=== PATIENT | male | born 1955 | race Caucasian/White ===

== ENCOUNTER 2016-10-11 07:46 | Inpatient (IN) | payer MEDICARE, OTHER ==
[~2016-10-11] VITALS: Ht 165.1 cm; Wt 63.5 kg
[~2016-10-11 07:46] MED LIST: BISOPROLOL; CARB-93; CLONAZEPAM; ENAL5TAB; LAMICTAL; TRAZ-147 PO
[2016-10-11] MEDS ORDERED: MORPHINE SULFATE INJ 4 MG/ML DISP.SYRIN ONE ×2 (08:19→09:38)
[2016-10-11] MEDS ORDERED: MORPHINE SULFATE INJ 2 MG/ML DISP.SYRIN IV ONE ×2 (08:30→10:00)
[2016-10-11 08:37] LABS: BASOPHILS % (AUTO) 0.7 % (0.0-2.0); DIFF TOTAL % 100 %; EOSINOPHILS % (AUTO) 0.7 % (0.0-6.0); HEMATOCRIT 39 % (39-51); HEMOGLOBIN 13.4 g/dL (13.5-17.5); LYMPHOCYTES % (AUTO) 15.9 % (20.0-44.0); MEAN CORPUSCULAR HEMOGLOBIN 32 PG (26.0-33.0); MEAN CORPUSCULAR HGB CONC 34 g/dl (31.0-36.0); MEAN CORPUSCULAR VOLUME 95 fL (80-96); MONOCYTES # (AUTO) 0.7 /CMM (0.1-1.30); MONOCYTES % (AUTO) 11.4 % (2.0-12.0); NEUTROPHILS # (AUTO) 4.7 /CMM (1.8-8.9); NEUTROPHILS % (AUTO) 71.3 % (43.0-81.0); PLATELET COUNT (AUTO) 249 /CMM (150-450); RED BLOOD CELL COUNT(AUTO) 4.15 MIL/uL (4.5-6.0); WHITE BLOOD COUNT (AUTO) 6.5 K/uL (4.3-11.0)
[2016-10-11 08:45] LABS: CALCIUM, SERUM 8.7 mg/dL (8.5-10.1); CREATININE 1.2 mg/dL (0.6-1.3); POTASSIUM 4.1 mmol/L (3.5-5.1)
[2016-10-11 08:57] LABS: INR 1.02 (0.87-1.13)
[2016-10-11] MEDS ORDERED: CARB-96 PO (09:47)
[2016-10-11] MEDS ORDERED: BISO1TAB4 PO (09:47)
[2016-10-11] MEDS ORDERED: LAMO200T39 PO (09:47)
[2016-10-11] MEDS ORDERED: ROPI1TAB4 PO (09:50)
[2016-10-11] MEDS ORDERED: CARB-93 PO (09:50)
[2016-10-11] MEDS ORDERED: FINA1TAB11 PO (09:50)
[2016-10-11] MEDS ORDERED: VALA10002 PO (09:50)
[2016-10-11] MEDS ORDERED: SILO8CAP PO (09:50)
[2016-10-11] MEDS ORDERED: ONDANSETRON HCL/PF 4 MG/2 ML VIAL IVP PRN (10:30)
[2016-10-11] MEDS ORDERED: Z GUARD REMEDY 2 OZ OINT TP PRN (10:30)
[2016-10-11] MEDS ORDERED: ZOLPIDEM TARTRATE 5 MG TABLET PO PRN (10:30)
[2016-10-11] MEDS ORDERED: ACETAMINOPHEN 650 MG/SUPP.RECT RC PRN (10:30)
[2016-10-11] MEDS ORDERED: HYDROCODONE/APAP 5/325MG 1 EACH TABLET PO PRN (10:30)
[2016-10-11] MEDS ORDERED: IV SET PRIMARY PUMP SET 1 EA INFUS.SET MC ONE (10:55)
[2016-10-11 11:00] VITALS: BP 125/78
[2016-10-11] MEDS: IV D5/0.45 NACL 1,000 ML IV PRN (12:53)
[2016-10-11] MEDS: ASPIRIN 81 MG TAB.CHEW PO SCH (12:54)
[2016-10-11] MEDS: CARBIDOPA/LEV CR 50/200 MG 1 UDTAB.SA PO SCH ×2 (12:55→18:58)
[2016-10-11] MEDS ORDERED: CARBIDOPA/LEVODOPA 25/100 MG 1 UDTAB PO SCH ×2 (13:00)
[2016-10-11] MEDS ORDERED: ropiniROLE 0.5 MG TABLET PO SCH (13:00)
[2016-10-11 13:25] LABS: KETONES,URINE 1+ (NEGATIVE); LEUKOCYTE ESTERASE ,URINE TRACE (NEGATIVE); PH,URINE 7.5 (5.0-8.0)
[2016-10-11 14:09] LABS: ADD UA MICROSCOPIC YES
[2016-10-11 14:11] LABS: ADD URINE CULTURE NO; RBC,URINE 0-2 /HPF (0-2)
[2016-10-11] MEDS: CARBIDOPA/LEVODOPA 25/100 MG 1 UDTAB PO SCH ×3 (15:00→21:38)
[2016-10-11 16:00] VITALS: BP 121/81
[2016-10-11] MEDS: ropiniROLE 0.5 MG TABLET PO SCH (17:29)
[2016-10-11 20:30] VITALS: BP 123/75
[2016-10-11] MEDS: METOPROLOL TARTRATE 25 MG TABLET PO SCH (21:37)
[2016-10-12] VITALS (7 sets, daily range): BP systolic 107–136; BP diastolic 61–76
[2016-10-12] MEDS: IV D5/0.45 NACL 1,000 ML IV PRN ×2 (00:13→15:37)
[2016-10-12] MEDS: CARBIDOPA/LEV CR 50/200 MG 1 UDTAB.SA PO SCH ×4 (00:16→19:17)
[2016-10-12] MEDS: CARBIDOPA/LEVODOPA 25/100 MG 1 UDTAB PO SCH ×5 (06:31→20:47)
[2016-10-12 07:39] LABS: CALCIUM, SERUM 8.2 mg/dL (8.5-10.1); PHOSPHORUS 2.6 mg/dL (2.5-4.9); POTASSIUM 3.8 mmol/L (3.5-5.1)
[2016-10-12 07:47] LABS: INR 0.99 (0.87-1.13); PROTHROMBIN TIME 10.7 SECS (9.5-12.7)
[2016-10-12 07:50] LABS: BASOPHILS % (AUTO) 0.7 % (0.0-2.0); DIFF TOTAL % 100 %; EOSINOPHILS # (AUTO) 0.1 /CMM (0.0-0.7); EOSINOPHILS % (AUTO) 1.4 % (0.0-6.0); HEMATOCRIT 37 % (39-51); HEMOGLOBIN 12.6 g/dL (13.5-17.5); LYMPHOCYTES # (AUTO) 1.8 /CMM (0.8-4.8); LYMPHOCYTES % (AUTO) 28.2 % (20.0-44.0); MEAN CORPUSCULAR HEMOGLOBIN 33 PG (26.0-33.0); MEAN CORPUSCULAR HGB CONC 34 g/dl (31.0-36.0); MEAN CORPUSCULAR VOLUME 96 fL (80-96); MONOCYTES # (AUTO) 0.9 /CMM (0.1-1.30); MONOCYTES % (AUTO) 14.8 % (2.0-12.0); NEUTROPHILS # (AUTO) 3.5 /CMM (1.8-8.9); NEUTROPHILS % (AUTO) 54.9 % (43.0-81.0); PLATELET COUNT (AUTO) 219 /CMM (150-450); RED BLOOD CELL COUNT(AUTO) 3.84 MIL/uL (4.5-6.0); WHITE BLOOD COUNT (AUTO) 6.4 K/uL (4.3-11.0)
[2016-10-12 08:17] LABS: THYROID STIMULATING HORMONE 1.038 uIU/mL (0.358-3.74)
[2016-10-12] MEDS: ASPIRIN 81 MG TAB.CHEW PO SCH (08:53)
[2016-10-12] MEDS: METOPROLOL TARTRATE 25 MG TABLET PO SCH ×2 (08:55→20:46)
[2016-10-12] MEDS: VALACYCLOVIR HCL 500 MG TABLET PO SCH (08:56)
[2016-10-12] MEDS: PANTOPRAZOLE 40 MG TABLET.DR PO SCH (08:56)
[2016-10-12] MEDS: ropiniROLE 0.5 MG TABLET PO SCH ×3 (08:56→17:30)
[2016-10-12] MEDS: LamoTRIgine 100 MG TABLET PO SCH (08:56)
[2016-10-12] MEDS ORDERED: BISOPROLOL FUMARATE PO SCH (09:00)
[2016-10-12] MEDS ORDERED: Medication Not On Formulary EA (Finasteride 1 MG) PO SCH (09:00)
[2016-10-12] MEDS ORDERED: HYDROCHLOROTHIAZIDE 25 MG TABLET PO SCH (09:00)
[2016-10-12] MEDS ORDERED: HCTZ PO SCH (09:00)
[2016-10-12] MEDS ORDERED: Z GUARD REMEDY 2 OZ OINT TP PRN (09:30)
[2016-10-12] MEDS: NEOMY SULF/BACITRAC ZN/POLY 15 GM TUBE TP SCH (10:51)
[2016-10-12] MEDS: Z GUARD REMEDY 2 OZ OINT TP SCH (17:32)
[2016-10-12] MEDS: TRAZODONE 50 MG TABLET PO SCH (21:39)
[2016-10-13] MEDS: CARBIDOPA/LEV CR 50/200 MG 1 UDTAB.SA PO SCH ×4 (00:08→19:39)
[2016-10-13] MEDS: IV D5/0.45 NACL 1,000 ML IV PRN ×2 (03:23→20:28)
[2016-10-13] MEDS: CARBIDOPA/LEVODOPA 25/100 MG 1 UDTAB PO SCH ×5 (06:45→22:02)
[2016-10-13 07:24] LABS: ALBUMIN 3.2 g/dL (3.4-5.0); BILIRUBIN,TOTAL 0.9 mg/dL (0.2-1.0); CALCIUM, SERUM 8.5 mg/dL (8.5-10.1); PHOSPHORUS 3.4 mg/dL (2.5-4.9); POTASSIUM 3.7 mmol/L (3.5-5.1); TOTAL PROTEIN, SERUM 6.1 g/dL (6.4-8.2)
[2016-10-13 08:00] VITALS: BP 109/68
[2016-10-13] MEDS: METOPROLOL TARTRATE 25 MG TABLET PO SCH ×2 (09:00→20:28)
[2016-10-13] MEDS: LamoTRIgine 100 MG TABLET PO SCH (09:38)
[2016-10-13] MEDS: PANTOPRAZOLE 40 MG TABLET.DR PO SCH (09:38)
[2016-10-13] MEDS: ASPIRIN 81 MG TAB.CHEW PO SCH (09:39)
[2016-10-13] MEDS: VALACYCLOVIR HCL 500 MG TABLET PO SCH (09:39)
[2016-10-13] MEDS: ropiniROLE 0.5 MG TABLET PO SCH ×3 (09:39→17:50)
[2016-10-13] MEDS: NEOMY SULF/BACITRAC ZN/POLY 15 GM TUBE TP SCH (09:40)
[2016-10-13] MEDS: Z GUARD REMEDY 2 OZ OINT TP SCH ×2 (09:43→17:50)
[2016-10-13 16:00] VITALS: BP 114/68
[2016-10-13 20:00] VITALS: BP 114/72
[2016-10-13] MEDS: HEPARIN SODIUM, PORCINE 5000 UNITS/1 ML VIAL SQ SCH (20:29)
[2016-10-13] MEDS ORDERED: ACETAMINOPHEN 325 MG TABLET PO PRN (20:30)
[2016-10-13] MEDS: TRAZODONE 50 MG TABLET PO SCH (22:02)
[2016-10-14] MEDS: CARBIDOPA/LEV CR 50/200 MG 1 UDTAB.SA PO SCH ×3 (01:05→12:17)
[2016-10-14] MEDS: CARBIDOPA/LEVODOPA 25/100 MG 1 UDTAB PO SCH ×3 (06:51→15:30)
[2016-10-14 07:17] LABS: BASOPHILS % (AUTO) 0.4 % (0.0-2.0); DIFF TOTAL % 100 %; EOSINOPHILS # (AUTO) 0.1 /CMM (0.0-0.7); EOSINOPHILS % (AUTO) 0.9 % (0.0-6.0); HEMATOCRIT 35 % (39-51); HEMOGLOBIN 11.8 g/dL (13.5-17.5); LYMPHOCYTES # (AUTO) 0.9 /CMM (0.8-4.8); LYMPHOCYTES % (AUTO) 11.8 % (20.0-44.0); MEAN CORPUSCULAR HEMOGLOBIN 33 PG (26.0-33.0); MEAN CORPUSCULAR HGB CONC 34 g/dl (31.0-36.0); MEAN CORPUSCULAR VOLUME 96 fL (80-96); MONOCYTES % (AUTO) 12.7 % (2.0-12.0); NEUTROPHILS # (AUTO) 5.6 /CMM (1.8-8.9); NEUTROPHILS % (AUTO) 74.2 % (43.0-81.0); PLATELET COUNT (AUTO) 188 /CMM (150-450); RED BLOOD CELL COUNT(AUTO) 3.58 MIL/uL (4.5-6.0); WHITE BLOOD COUNT (AUTO) 7.5 K/uL (4.3-11.0)
[2016-10-14 07:32] LABS: CALCIUM, SERUM 8.2 mg/dL (8.5-10.1); CREATININE 0.9 mg/dL (0.6-1.3); POTASSIUM 3.8 mmol/L (3.5-5.1)
[2016-10-14 08:00] VITALS: BP 115/59
[2016-10-14] MEDS: ASPIRIN 81 MG TAB.CHEW PO SCH (08:33)
[2016-10-14] MEDS: PANTOPRAZOLE 40 MG TABLET.DR PO SCH (08:33)
[2016-10-14] MEDS: LamoTRIgine 100 MG TABLET PO SCH (08:33)
[2016-10-14] MEDS: METOPROLOL TARTRATE 25 MG TABLET PO SCH (08:34)
[2016-10-14] MEDS: VALACYCLOVIR HCL 500 MG TABLET PO SCH (08:34)
[2016-10-14] MEDS: HEPARIN SODIUM, PORCINE 5000 UNITS/1 ML VIAL SQ SCH (08:35)
[2016-10-14] MEDS: ropiniROLE 0.5 MG TABLET PO SCH ×2 (08:40→12:17)
[2016-10-14] MEDS: Z GUARD REMEDY 2 OZ OINT TP SCH (08:41)
[2016-10-14] MEDS: NEOMY SULF/BACITRAC ZN/POLY 15 GM TUBE TP SCH (08:41)
[2016-10-14] MEDS: IV D5/0.45 NACL 1,000 ML IV PRN (10:25)
[2016-10-14] MEDS ORDERED: SECONDARY IV SET 1 EA INFUS.SET MC ONE (10:32)
[2016-10-14 16:00] VITALS: BP 115/64
== END 2016-10-14 16:30 | disposition home health service (06) | DRG 74 ==
LOC: ER 07:48 → MED 09:52 → TELE 11:50 → MED 10-12 09:38
PROVIDERS: ADMIT Internal Medicine; ATTEND Internal Medicine
DX: G90.8 Other disorders of autonomic nervous system (principal); G90.3 Multi-system degeneration of the autonomic nervous system; G20 Parkinson's disease; I10 Essential (primary) hypertension; N40.0 Benign prostatic hyperplasia without lower urinary tract symptoms; R29.6 Repeated falls; R56.9 Unspecified convulsions; R26.9 Unspecified abnormalities of gait and mobility; M47.816 Spondylosis without myelopathy or radiculopathy, lumbar region
CPT/HCPCS: 36415; 70450-TC; 71010-TC; 73510-TC; 80048-TC; 80053-TC; 80061-TC; 81000-TC; 82553-TC; 82746; 83540-TC; 83735-TC; 84100-TC; 84443-TC; 84484-TC; 85025-TC; 85652-TC; 85730-TC; 87081-TC; 87086-TC; 93307-TC; 97001-TC; 97003-TC; 97116-TC; 97530-TC; A4606; J1644; J2270; J3490; Z7610